=== PATIENT | female | born 1925 | race African-American/Black ===

== ENCOUNTER 2017-08-11 19:57 | Emergency (ER) | payer MEDICARE, BC ==
[~2017-08-11] VITALS: Ht 180.3 cm; Wt 107.5 kg
[~2017-08-11 19:57] MED LIST: ADVAIR 100-501 EACH INH; ALBUTEROL SULF8.5 GM INH; ALBUTEROL2.5 MG/3 M HHN; ALPHAGAN P5 M2 BOTH EYES; ASPIRIN81 M3 PO; CELEXA20 MG ORAL; COUMADIN7.5 MG ORAL; CYANOCOBAL1000 MCG/M PO; DORZOLAMIDE HCL10 M1 BOTH EYES; ELIQUIS2.5 MG ORAL; GABAPENTIN100 MG ORAL; HYDROCHLOROTHIA25 MG ORAL; LATANOPROST2.5 ML BOTH EYES; LIPITOR80 MG ORAL; LISINOPRIL10 MG ORAL; METOPROLOL TART25 MG ORAL; MIRTAZAPINE15 MG ORAL; NKM; NORVASC10 MG ORAL; PACERONE200 MG ORAL; PLAVIX75 MG ORAL; POLYTRIM EYE DR10 M1 BOTH EYES; PROTONIX20 MG ORAL
--- NOTE | 2017-08-11 20:33 | Emergency Room Report ---
History of Present Illness General Chief Complaint: Dizziness Source: Patient Present Illness HPI Patient is a 89-year-old female who presented after increased generalized headache and dizziness. The patient points having acute onset of symptoms. Patient had recently been treated for right lower extremity infection with 7 days of antibiotics but is not currently taking antibiotics this time. The patient reported having increased palpitations. She had prior history of palpitations as well as high blood pressure and asthma.The patient reported having recent fall. The patient was noted to be taking patients for blood pressure as well as anticoagulation with Xarelto 20 mg Allergies: Uncoded Allergies: B12 (Allergy, Unknown, 08/11/17) Patient History Past Medical History: see triage record Reviewed Nursing Documentation: PMH: Agreed; PSxH: Agreed Nursing Documentation-PMH Hx Cardiac Problems: Yes - Hyoerlipidemia, Peripheral arterial disease Hx Hypertension: Yes Hx Asthma: Yes Hx Cancer: Yes Hx Gastrointestinal Problems: No Hx Neurological Problems: Yes Hx Cerebrovascular Accident: Yes - Rt. side weakness Hx Peripheral Neuropathy: Yes Review of Systems All Other Systems: negative except mentioned in HPI Physical Exam Vital Signs Date Time Temp Pulse Resp B/P (MAP) Pulse Ox O2 Delivery O2 Flow Rate FiO2 08/11/17 20:03 98.0 91 16 151/75 97 Room Air 98.1 General Appearance: obese, Chronically Ill ENT: other - decreased hearing Neck: limited range of motion Respiratory: other - decreased breath sounds both bases Cardiovascular #1: edema - trace edema Cardiovascular #2: 2+ dorsalis pedis (R), 2+ dorsalis pedis (L) Gastrointestinal: normal inspection, non tender, soft Musculoskeletal: normal inspection, decreased range of motion Neurologic: normal inspection, alert, oriented x3, responsive Psychiatric: normal inspection, judgement/insight normal Medical Decision Making Diagnostic Impression: Primary Impression: Fall Additional Impressions: Head injury Bifascicular block QT prolongation Hx of breast cancer Status post right mastectomy ER Course Patient presented for dizziness. Differential diagnosis included was not limited to anemia, urinary tract infection, electrolyte abnormality, hypothyroidism, myocardial infarction, myasthenia gravis, dehydration, among others. Because of complexity of patient's case laboratory testing and imaging studies were ordered. The patient was noted to have EKG interpreted by me with normal sinus rhythm with a rate of 89 with bifascicular block QTc was 493. Patient was noted to have normal oxygen saturation.The chest x-ray one view interpreted by me showed postsurgical changes consistent with prior mastectomy. The patient noted some dizziness. CT head read by radiology showed no evidence of acute hemorrhage. Given the patient's cardiac history as well as recent head injury due to fall patient will be admitted for further evaluation and treatment. Dr. Benson was contacted for Dr. Mei for inpatient management. Labs Test 08/11/17 20:20 White Blood Count 4.8 K/UL (4.8-10.8) Red Blood Count 4.94 M/UL (4.20-5.40) Hemoglobin 14.7 G/DL (12.0-16.0) Hematocrit 45.9 % (37.0-47.0) Mean Corpuscular Volume 93 FL (80-99) Mean Corpuscular Hemoglobin 29.7 PG (27.0-31.0) Mean Corpuscular Hemoglobin Concent 32.0 G/DL (32.0-36.0) Red Cell Distribution Width 14.0 % (11.6-14.8) Platelet Count 157 K/UL (150-450) Mean Platelet Volume 7.3 FL (6.5-10.1) Neutrophils (%) (Auto) 51.6 % (45.0-75.0) Lymphocytes (%) (Auto) 33.4 % (20.0-45.0) Monocytes (%) (Auto) 7.2 % (1.0-10.0) Eosinophils (%) (Auto) 5.8 % (0.0-3.0) Basophils (%) (Auto) 2.0 % (0.0-2.0) Last Vital Signs Date Time Temp Pulse Resp B/P (MAP) Pulse Ox O2 Delivery O2 Flow Rate FiO2 08/11/17 20:03 98.0 91 16 151/75 97 Room Air 98.1 Status: unchanged Disposition: ADMITTED INPATIENT Condition: Serious Jeferson Vargas Aug 11, 2017 20:33
[2017-08-11] MEDS ORDERED: Meclizine 25mg tab ORAL ONE (20:45)
[2017-08-11 21:01] VITALS: BP 156/76
[2017-08-11 21:23] LABS: EOSINOPHILS % (AUTO) 5.8 % (0.0-3.0); HEMATOCRIT 45.9 % (37.0-47.0); HEMOGLOBIN 14.7 G/DL (12.0-16.0); LYMPHOCYTES % (AUTO) 33.4 % (20.0-45.0); MEAN CORPUSCULAR VOLUME 93 FL (80-99); MONOCYTES % (AUTO) 7.2 % (1.0-10.0); NEUTROPHILS % (AUTO) 51.6 % (45.0-75.0); PLATELET COUNT 157 K/UL (150-450); RED BLOOD COUNT 4.94 M/UL (4.20-5.40); WHITE BLOOD COUNT 4.8 K/UL (4.8-10.8)
[2017-08-11] MEDS ORDERED: Norco 5mg/325mg tab ORAL ONE (22:00)
[2017-08-11 22:43] LABS: BLOOD UREA NITROGEN 15 mg/dL (7-18); CARBON DIOXIDE 28 MMOL/L (21-32); CREATININE 1.2 MG/DL (0.55-1.30)
[2017-08-11 22:44] LABS: ALANINE AMINOTRANSFERASE 16 U/L (12-78); ASPARTATE AMINO TRANSFERASE 17 U/L (15-37); BILIRUBIN,TOTAL 0.5 MG/DL (0.2-1.0); CALCIUM 9.1 MG/DL (8.5-10.1); PHOSPHORUS 3.5 MG/DL (2.5-4.9)
[2017-08-11 22:45] LABS: ALBUMIN 3.5 G/DL (3.4-5.0); ALKALINE PHOSPHATASE 99 U/L (46-116)
[2017-08-11 23:00] VITALS: BP 156/76
[2017-08-11 23:21] LABS: CKMB 1.1 NG/ML (0.0-3.6); CREATINE KINASE 129 U/L (26-140)
[2017-08-12 06:54] LABS: ANION GAP 11 mmol/L (5-15); CHLORIDE 104 MMOL/L (98-107); POTASSIUM 4.4 MMOL/L (3.5-5.1); SODIUM 143 MMOL/L (136-145)
--- NOTE | 2017-08-12 14:16 | Diagnostic Imaging Report ---
Indication: Shortness of breath Technique: One view of the chest Comparison: none Findings: Patient's chin obscures the right lung apex. Patient is slightly rotated to the right. Atelectatic changes are seen at the left lung base. The heart size is upper limits normal Impression: Left basilar atelectasis. No acute process otherwise
--- NOTE | 2017-08-12 14:20 | Diagnostic Imaging Report ---
Indications: Head pain Technique: Spiral acquisitions obtained through the brain. Angled axial and coronal 5 x 5 mm slices were reconstructed. Total dose length product 1513 mGycm. CTDI vol(s) 70 mGy. Dose reduction achieved using automated exposure control Comparison: 10/12/2011 Findings: There is mild age-related enlargement of the ventricles and extra-axial CSF spaces. There is periventricular deep white matter low attenuation consistent with chronic ischemic change. No acute hemorrhage or edema. No mass effect or midline shift. There are more small lacunar infarcts are seen in the anterior right basal ganglia region. Otherwise normal ordoñez-white differentiation. There is evidence of prior ocular surgery. The mastoids are clear. The visualized sinuses are clear. The calvarium is intact. Previously demonstrated left ocular proptosis is clearly evident currently but less completely scanned than on the prior study. Impression: Chronic and age-related changes Negative for acute intracranial bleed or mass effect This agrees with the preliminary interpretation provided overnight by [facility]. The CT scanner at [facility] is accredited by the [employer] and the scans are performed using protocols designed to limit radiation exposure to as low as reasonably achievable to attain images of sufficient resolution adequate for diagnostic evaluation.
--- NOTE | 2017-08-12 18:53 | Cardiology Report ---
APPROVED REPORT EKG Measurement Heart [id number] Normal sinus rhythm Right atrial enlargement Right bundle branch block Left anterior fascicular block Bifascicular block Minimal voltage criteria for LVH, may be normal variant Abnormal ECG
== END 2017-08-11 23:00 | disposition other institution (70) ==
LOC: EDBD 19:57 → EDUNIT# 19:57 → EMR 20:36 → UNDOADMIN 21:09 → 2E 21:09 → EDBEDREQ 22:35 → EMR 23:00
DX: S09.8XXA Other specified injuries of head, initial encounter (principal); X58.XXXA Exposure to other specified factors, initial encounter; Y92.9 Unspecified place or not applicable; I45.2 Bifascicular block; I45.81 Long QT syndrome; Z90.11 Acquired absence of right breast and nipple; I10 Essential (primary) hypertension; J45.909 Unspecified asthma, uncomplicated; E78.5 Hyperlipidemia, unspecified; I69.351 Hemiplegia and hemiparesis following cerebral infarction affecting right dominant side; R42 Dizziness and giddiness; R51 Headache; Z85.3 Personal history of malignant neoplasm of breast
CPT/HCPCS: 36415; 70450; 71045; 80053; 82550; 82553; 83605; 83735; 84100; 84484; 85025; 86850; 86900; 86901; 87040; 93005; 99285